=== PATIENT | female | born 1950 | race Caucasian/White ===

== ENCOUNTER 2016-10-06 17:25 | Emergency (ER) | payer BC ==
[~2016-10-06] VITALS: Ht 160 cm; Wt 142.0 kg
[~2016-10-06 17:25] MED LIST changes: -ALBU6.7H INH; -ASPI-557 PO; -CALC-191 PO; -CEPH500C2 PO; -CETI-115 PO; -FLUT16SP EA NOSTRIL; -HYDR-4246 PO; -HYDR25TA PO; -LOSA50TA52 PO; -MAGN250T PO; -SULF1TAB42 PO
[2016-10-06 17:28] VITALS: Ht 160 cm; Wt 142.0 kg
--- OUTSIDE RECORDS SUMMARY | 2016-10-06 17:29 | XMS REPORT ---
Author Author Ki Evans Organization e[employer] Address Unknown Phone Unavailable Care Team Providers Care Buildings And Grounds Supervisor Name Role Phone Ki Evans CP Unavailable Allergies No Known Allergies Problems Problem Type Condition ICD-9 Code Onset Dates Condition Status Problem Morbid obesity 278.01 Active Problem Generalized anxiety disorder 300.02 Active Problem Hypertension, benign 401.1 Active Problem Allergic rhinitis 477.9 Active Problem Carpal tunnel syndrome 354.0 Active Problem Prediabetes 790.29 Active Problem Old laceration or scarring of vulva 624.4 Active Problem Hypercholesterolemia 272.2 Active Problem Major depressive disorder, recurrent episode, mild 296.31 Active Problem Nonspecific abnormal results of kidney function study 794.4 Active Medications Medication Code System Code Instructions Start Date End Date Status Dosage Losartan Potassium [facility] [address]-59 50 MG Orally Once a day Jan 17, 2014 1 tablet Results No Known Results Summary Purpose eClinicalWorks Submission
--- OUTSIDE RECORDS SUMMARY | 2016-10-06 17:29 | XMS REPORT ---
Author Author Breanne Botello Organization [employer] Address Unknown Phone Unavailable Care Team Providers Care Artificial Plastic Eye Maker Name Role Phone Breanne Botello CP Unavailable Allergies No Known Allergies Problems Problem Type Condition Code Onset Dates Condition Status Problem Morbid [...] Date End Date Status Dosage Losartan Potassium [facility] [address]-82 50 MG Orally Once a day Jan 17, 2014 1 tablet Hydrochlorothiazide [facility] [address]-52 25 MG Orally Once a day December 13, 2013 1 tablet Results No Known Results Summary Purpose eClinicalWorks Submission
--- OUTSIDE RECORDS SUMMARY | 2016-10-06 17:29 | XMS REPORT ---
Author Author Breanne Botello [facility] eClinical[employer] Address Unknown Phone Unavailable Care Team Providers Care Mud Grinder Name Role Phone Breanne Botello Unavailable Allergies, Adverse Reactions, Alerts Substance Reaction Event Type Naproxen anaphylaxis Drug Allergy Lisinopril elevated creatinine Drug Allergy Augmentin rash Drug Allergy Amoxicillin hives Drug Allergy gluten rash Non Drug Allergy Problems Problem Type Condition Code Onset Dates Condition Status Problem Morbid obesity 278.01 Active Problem Generalized anxiety disorder 300.02 Active Problem Hypertension, benign 401.1 Active Assessment Acute maxillary sinusitis, unspecified J01.00 Active Assessment Acute bronchitis, unspecified J20.9 Active Problem Allergic rhinitis 477.9 Active Problem Carpal tunnel syndrome 354.0 Active Problem Prediabetes 790.29 Active Problem Old laceration or scarring of vulva 624.4 Active Problem Hypercholesterolemia 272.2 Active Problem Major depressive disorder, recurrent episode, mild 296.31 Active Problem Nonspecific abnormal results of kidney function study 794.4 Active Medications Medication Code System Code Instructions Start Date End Date Status Dosage Marti Maravilla [facility] [address]-92 100 MG Orally Three times a day AugustSeptember 14, 2015 1 capsule as needed Losartan Potassium [facility] [address]-04 50 MG Orally Once a day *needs appt before next refill* Jan 17, 2014 1 tablet Flonase [facility] [address]-93 50 MCG/ACT Nasally Once a day September 04, 2015 1 spray in each nostril ProAir HFA [facility] [address]-74 108 (90 Base) MCG/ACT Inhalation every 4 hrs September 04, 2015 2 puffs as needed Azithromycin [facility] [address]-18 250 MG Orally Once a day September 04, 2015 September 09, 2015 2 tablets on the first day, then 1 tablet daily for 4 days Mobic [facility] [address]-67 7.5 MG Orally Once a day May 03, 2015 October 02, 2015 1 tablet Hydrochlorothiazide [facility] [address]-32 25 MG Orally Once a day December 13, 2013 1 tablet Procedures Procedure Coding System Code Date OFFICE VISIT, EST-LOW COMPLEXITY (15 MIN.) CPT-4 55113 September 04, 2015 Vital Signs Date/Time: September 04, 2015 Temperature 97.7 F Height 62 in Weight 250.8 lbs Blood Pressure Diastolic 73 mm Hg Blood Pressure Systolic 121 mm Hg Cardiac Monitoring Heart Rate 63 /min BMI 45.87 Index Respiratory Rate 16 /min Results No Known Results Summary Purpose eClinicalWorks Submission
--- OUTSIDE RECORDS SUMMARY | 2016-10-06 17:29 | XMS REPORT ---
Author Author Breanne Btoello Organization [employer] Address Unknown Phone Unavailable Care Team Providers Care Staff Consultant Name Role Phone Breanne Botello CP Unavailable [...] Instructions Start Date End Date Status Dosage [facility] [address]-57 7.5 MG Orally Once a day May 03, 2015 October 02, 2015 1 tablet Results No Known Results Summary Purpose eClinicalWorks Submission
--- OUTSIDE RECORDS SUMMARY | 2016-10-06 17:29 | XMS REPORT ---
Author Author Breanne Botello Organization [employer] Address Unknown Phone Unavailable Care Team Providers Care Teaching Music Lessons Name Role Phone Breanne Botello CP Unavailable Allergies, Adverse Reactions, Alerts Substance Reaction [...] results of kidney function study 794.4 Active Assessment Pain in right knee M25.561 Active Assessment Essential (primary) hypertension I10 Active Assessment Other abnormal glucose R73.09 Active Medications Medication Code System Code Instructions Start Date End Date Status Dosage Hydrochlorothiazide [facility] [address]-36 25 MG Orally Once a day December 13, 2013 1 tablet Mobic [facility] [address]-95 7.5 MG Orally Once a day May 03, 2015 Jun 02, 2015 1 tablet Losartan Potassium [facility] [address]-05 50 MG Orally Once a day Jan 17, 2014 1 tablet Procedures Procedure Coding System Code Date OFFICE VISIT, EST-LOW COMPLEXITY (15 MIN.) CPT-4 69545 May 03, 2015 HEMOGLOBIN A1C, IN HOUSE CPT-4 73718 May 03, 2015 Vital Signs Date/Time: May 03, 2015 Height 62 in Weight 244.8 lbs Temperature 97.7 F Blood Pressure Diastolic 77 mm Hg Blood Pressure Systolic 152 mm Hg Cardiac Monitoring Heart Rate 63 /min BMI 44.77 Index Respiratory Rate 16 /min Results Name Result Date Reference Range Unit Abnormality Flag In House HB A1c ----Hemoglobin A1c 5.7 [id number] Summary Purpose eClinicalWorks Submission
--- OUTSIDE RECORDS SUMMARY | 2016-10-06 17:29 | XMS REPORT ---
Author Author Inessa Daniels [facility] eClinicalWorks Address Unknown Phone Unavailable Care Team Providers Care Stadium Manager Name Role Phone Inessa Daniels CP Unavailable Allergies, Adverse Reactions, Alerts Substance Reaction Event Type Naproxen anaphylaxis Drug Allergy Lisinopril elevated creatinine Drug Allergy Augmentin rash Drug Allergy Amoxicillin hives Drug Allergy gluten rash Non Drug Allergy Problems Problem Type Condition Code Onset Dates Condition Status Problem Morbid obesity 278.01 Active Problem Generalized anxiety disorder 300.02 Active Problem Hypertension, benign 401.1 Active Assessment Dysuria 788.1 Active Assessment Routine gynecological examination V72.31 Active Problem Allergic rhinitis 477.9 Active Problem Carpal tunnel syndrome 354.0 Active Problem Prediabetes 790.29 Active Problem Old laceration or scarring of vulva 624.4 Active Problem Hypercholesterolemia 272.2 Active Problem Major depressive disorder, recurrent episode, mild 296.31 Active Problem Nonspecific abnormal results of kidney function study 794.4 Active Medications Medication Code System Code Instructions Start Date End Date Status Dosage Losartan Potassium [facility] [address]-46 50 MG Orally Once a day Jan 17, 2014 1 tablet Metformin HCl [facility] [address]-78 500 MG Orally One tablet in the morning for 7 days, then Twice a day July 25, 2014 1 tablet with meals Hydrochlorothiazide [facility] [address]-33 25 MG Orally Once a day December 13, 2013 1 tablet Venlafaxine HCl ER [facility] [address]-40 37.5 MG Orally Once a day with food Jun 27, 2014 3 caps [id number], then 2 caps [id number], then1 cap QDX 2wks, then stop Glucosamine [facility] [address]-34 500 MG Orally Once a day 1 capsule with a meal Prilosec [facility] [address]-48 20 MG Orally Once a day prn Jan 17, 2014 1 capsule Procedures Procedure Coding System Code Date SPECIMEN HANDLING FEE CPT-4 03594 August 24, 2014 Preventive Care Est Pt. Age 40-64 CPT-4 90904 August 24, 2014 URINALYSIS, IN HOUSE CPT-4 94105 August 24, 2014 Vital Signs Date/Time: August 24, 2014 Height 62 in Weight 261.12 lbs Temperature 97.8 F Blood Pressure Diastolic 68 mm Hg Blood Pressure Systolic 132 mm Hg Cardiac Monitoring Heart Rate 62 /min BMI 47.75 Index Respiratory Rate 16 /min Results No Known Results Summary Purpose eClinicalWorks Submission
--- OUTSIDE RECORDS SUMMARY | 2016-10-06 17:29 | XMS REPORT ---
Author Author Breanne Botello Organization [employer] Address Unknown Phone Unavailable Care Team Providers Care Clinical Fellow Name Role Phone Breanne Botello CP Unavailable Allergies No Known Allergies Problems Problem Type Condition Code Onset Dates Condition Status Problem Morbid obesity 278.01 Active Problem Generalized anxiety disorder 300.02 Active Problem Benign essential hypertension I10 Active Problem Allergic rhinitis 477.9 Active Problem Carpal tunnel syndrome 354.0 Active Problem Prediabetes 790.29 Active Problem Old laceration or scarring of vulva 624.4 Active Problem Hypercholesterolemia 272.2 Active Problem Major depressive disorder, recurrent episode, mild F33.0 Active Problem Nonspecific abnormal results of kidney function study 794.4 Active Medications No Known Medications Results No Known Results Summary Purpose eClinicalWorks Submission
--- OUTSIDE RECORDS SUMMARY | 2016-10-06 17:29 | XMS REPORT ---
Author Author Inessa Daniels Organization [employer] Address Unknown Phone Unavailable Care Team Providers Care Aml Analyst Name Role Phone Inessa Daniels CP Unavailable Allergies No Known Allergies Problems Problem Type Condition ICD-9 Code Onset Dates Condition Status Problem Hypertension, benign 401.1 Active Problem Morbid obesity 278.01 Active Problem Carpal tunnel syndrome 354.0 Active Problem Major depressive disorder, recurrent episode, mild 296.31 Active Problem Allergic rhinitis 477.9 Active Problem Hypercholesterolemia 272.2 Active Problem Generalized anxiety disorder 300.02 Active Problem Nonspecific abnormal results of kidney function study 794.4 Active Problem Old laceration or scarring of vulva 624.4 Active Medications Medication Code System Code Instructions Start Date End Date Status Dosage Venlafaxine HCl ER [facility] [address]-05 37.5 MG Orally Once a day with food Jun 27, 2014 3 caps [id number], then 2 caps [id number], then1 cap QDX 2wks, then stop Results No Known Results Summary Purpose eClinicalWorks Submission
--- OUTSIDE RECORDS SUMMARY | 2016-10-06 17:29 | XMS REPORT ---
Author Author Ki Evans Organization [employer] Address Unknown Phone Unavailable Care Team Providers Care Shaper Set Up Operator Name Role Phone Ki Evans CP Unavailable [...] or scarring of vulva 624.4 Active Medications No Known Medications Vital Signs Date/Time: Feb 23, 2014 Height 62 inches Weight 249 lbs Temperature 97.8 F Blood Pressure Diastolic 68 mm Hg Blood Pressure Systolic 108 mm Hg Cardiac Monitoring Heart Rate 80 Beats per Minute BMI 45.54 Index Respiratory Rate 16 per Minute Results No Known Results Summary Purpose eClinicalWorks Submission
--- OUTSIDE RECORDS SUMMARY | 2016-10-06 17:29 | XMS REPORT ---
Author Author Ki Evans Organization [employer] Address Unknown Phone Unavailable Care Team Providers Care Hand Buffing Wheel Former Name Role Phone Ki Evans CP Unavailable [...] Instructions Start Date End Date Status Dosage Metformin HCl [facility] [address]-97 500 MG Orally One tablet in the morning for 7 days, then Twice a day July 25, 2014 1 tablet with meals Results No Known Results Summary Purpose eClinicalWorks Submission
--- OUTSIDE RECORDS SUMMARY | 2016-10-06 17:29 | XMS REPORT ---
Author Author Syeda Anton Organization [employer] Address Unknown Phone Unavailable Care Team Providers Care Senior Major Gifts Officer Name Role Phone Syeda Anton CP Unavailable Allergies No Known Allergies Problems [...] vulva 624.4 Active Medications No Known Medications Results No Known Results Summary Purpose eClinicalWorks Submission
--- OUTSIDE RECORDS SUMMARY | 2016-10-06 17:30 | XMS REPORT ---
Author Author Syeda Anton Organization [employer] Address Unknown Phone Unavailable Care Team Providers Care Range Scientist Name Role Phone Syeda Anton CP Unavailable Allergies, Adverse Reactions, Alerts Substance Reaction Event Type Naproxen anaphylaxis Drug Allergy Lisinopril elevated creatinine Drug Allergy Augmentin rash Drug Allergy gluten rash Non Drug Allergy Problems Problem Type Condition ICD-9 Code Onset Dates Condition Status Assessment Hypertension, benign 401.1 Active Problem Hypertension, benign 401.1 Active Problem Morbid obesity 278.01 Active Problem Carpal tunnel syndrome 354.0 Active Problem Major depressive disorder, recurrent episode, mild 296.31 Active Problem Allergic rhinitis 477.9 Active Problem Hypercholesterolemia 272.2 Active Problem Generalized anxiety disorder 300.02 Active Problem Nonspecific abnormal results of kidney function study 794.4 Active Problem Old laceration or scarring of vulva 624.4 Active Assessment Allergic rhinitis 477.9 Active Assessment Hypercholesterolemia 272.2 Active Assessment Generalized anxiety disorder 300.02 Active Medications Medication Code System Code Instructions Start Date End Date Status Dosage Hydrochlorothiazide [facility] [address]-37 25 MG Orally Once a day December 13, 2013 Active 1 tablet Losartan Potassium [facility] [address]-19 50 MG Orally Once a day Jan 17, 2014 Active 1 tablet Venlafaxine HCl ER [facility] [address]-25 150 MG Orally Once a day Active 1 capsule with food Prilosec [facility] [address]-68 20 MG Orally Once a day Jan 17, 2014 Active 1 capsule Procedures Procedure Coding System Code Date OFFICE VISIT, EST-LOW COMPLEXITY (15 MIN.) CPT-4 41639 Feb 23, 2014 Vital Signs Date/Time: Feb 23, 2014 Height 62 inches Weight 249 lbs Temperature 97.8 F Blood Pressure Diastolic 68 mm Hg Blood Pressure Systolic 108 mm Hg Cardiac Monitoring Heart Rate 80 Beats per Minute BMI 45.54 Index Respiratory Rate 16 per Minute Results No Known Results Immunizations Vaccine Administration Date Refused Influenza Feb 23, 2014 Refused TDap Feb 23, 2014 Summary Purpose eClinicalWorks Submission
--- OUTSIDE RECORDS SUMMARY | 2016-10-06 17:30 | XMS REPORT ---
Author Author Syeda Anton Organization [employer] Address Unknown Phone Unavailable Care Team Providers Care Nurse Outreach Case Manager Name Role Phone Syeda Anton CP Unavailable [...] End Date Status Dosage Venlafaxine HCl ER [facility] [address]-12 150 MG Orally Once a day Active 1 capsule with food Losartan Potassium [facility] [address]-23 50 MG Orally Once a day Jan 17, 2014 Active 1 tablet Hydrochlorothiazide [facility] [address]-58 25 MG Orally Once a day December 13, 2013 Active 1 tablet Vital Signs Date/Time: Feb 23, 2014 Height 62 inches Weight 249 lbs Temperature 97.8 F Blood Pressure Diastolic 68 mm Hg Blood Pressure Systolic 108 mm Hg Cardiac Monitoring Heart Rate 80 Beats per Minute BMI 45.54 Index Respiratory Rate 16 per Minute Results No Known Results Summary Purpose eClinicalWorks Submission
--- OUTSIDE RECORDS SUMMARY | 2016-10-06 17:30 | XMS REPORT ---
Author Author Breanne Botello [facility] eClinicalWorks Address Unknown Phone Unavailable Care Team Providers Care Patient Support Associate Name Role Phone Breanne Botello Unavailable Allergies, [...] rhinitis 477.9 Active Problem Carpal tunnel syndrome G56.00 Active Problem Prediabetes 790.29 Active Problem Old laceration or scarring of vulva 624.4 Active Problem Hypercholesterolemia 272.2 Active Problem Major depressive disorder, recurrent episode, mild F33.0 Active Problem Nonspecific abnormal results of kidney function study 794.4 Active Assessment Carpal tunnel syndrome, right upper limb G56.01 Active Assessment Fatigue, unspecified type R53.83 Active Assessment Benign essential hypertension I10 Active Assessment Major depressive disorder, recurrent episode, mild F33.0 Active Medications Medication Code System Code Instructions Start Date End Date Status Dosage Flonase [facility] [address]-16 50 MCG/ACT Nasally Once a day September 04, 2015 1 spray in each nostril Losartan Potassium [facility] [address]-61 50 MG Orally Once a day *needs appt before next refill* Jan 17, 2014 1 tablet Mobic [facility] 45836[address]4445 7.5 Orally Once a day August 21, 2016 1 tablet Wellbutrin XL [facility] [address]-74 150 MG Orally Once a day Jan 24, 2016 1 tablet in the morning ProAir HFA [facility] [address]-25 108 (90 Base) MCG/ACT Inhalation every 4 hrs September 04, 2015 2 puffs as needed Hydrochlorothiazide [facility] [address]-91 25 MG Orally Once a day December 13, 2013 1 tablet Procedures Procedure Coding System Code Date HEMOGLOBIN A1C, IN HOUSE CPT-4 00905 Jan 24, 2016 VITAMIN D 25 HYDROXY CPT-4 02926 Jan 24, 2016 -ELECTROCARDIOGRAM, COMPLETE CPT-4 67009 Jan 24, 2016 OFFICE VISIT, EST-LOW COMPLEXITY (15 MIN.) CPT-4 19777 Jan 24, 2016 TSH CPT-4 33212 Jan 24, 2016 VITAMIN B12 CPT-4 24650 Jan 24, 2016 FOLATE- VIT B12 AND FOLATE CPT-4 15196 Jan 24, 2016 COMPREHENSIVE METABOLIC PANEL CPT-4 19812 Jan 24, 2016 COMPLETE CBC W/AUTO DIFF WBC CPT-4 91549 Jan 24, 2016 Vital Signs Date/Time: Jan 24, 2016 Temperature 97.9 F Height 62 in Weight 257.12 lbs Blood Pressure Diastolic 72 mm Hg Blood Pressure Systolic 162 mm Hg Cardiac Monitoring Heart Rate 61 /min BMI 47.02 Index Oximetry 98 % Results Name Result Date Reference Range Unit Abnormality Flag CBC With Platelet and Differential ----Immature Granulocytes 0.3 55073654 0.0-1.0 % ----Platelet Count 242 [id number] 150-400 K/uL ----Monocytes 8 10511167 4-11 % ----HGB 15.3 59828769 12.0-16.0 g/dL ----Lymphocytes 32 96763271 20-46 % ----HCT 43.8 94661439 37.0-47.0 % ----Neutrophils 57 44722784 51-75 % ----MCV 84.1 67065715 82.0-99.0 fL ----Absolute Basophils 0.04 10671515 0.00-0.20 10*3 ----MCH 29.4 01421064 27.0-32.0 pg ----Absolute Eosinophils 0.30 68999298 0.00-0.50 10*3 ----MCHC 34.9 33548502 32.0-36.0 g/dL ----Eosinophils 3 60310842 0-4 % ----Absolute Monocytes 0.68 37210584 0.30-1.00 10*3 ----RDW 13.7 02439454 11.5-14.5 % ----Basophils 0 23913936 0-2 % ----WBC 8.9 78526112 4.8-10.8 K/uL ----MPV 10.9 67206089 8.8-14.8 fL ----Absolute Lymphocytes 2.83 53241974 0.80-3.30 10*3 ----Differential Scanned Slide [id number] ----RBC 5.21 04666169 4.00-5.20 10*6/uL H ----Absolute Neutrophils 5.01 18694914 1.90-7.00 10*3 Comprehensive Metabolic Panel (CMP) ----AST (SGOT) 16 23981491 5-34 U/L ----Sodium 140 81928879 135-144 mEq/L ----Calcium 9.6 64226446 8.9-10.5 mg/dL ----ALT (SGPT) 13 20160124 0-55 U/L ----Chloride 104 56501659 99-111 mEq/L ----Protein 7.0 58022393 6.0-7.6 g/dL ----Potassium 5.3 76577652 3.5-5.2 mEq/L H ----Alkaline Phosphatase 60 59902121 40-150 U/L ----Glucose 108 62963187 70-99 mg/dL H ----Globulin 2.6 36916421 1.8-4.0 g/dL ----Creatinine 1.10 18987653 0.57-1.11 mg/dL ----Anion Gap 9 35011437 3-20 ----BUN 21 18236885 10-20 mg/dL H ----Bilirubin Total 0.6 87279973 0.2-1.2 mg/dL ----CO2 27 14603413 22-31 mEq/L ----Albumin 4.4 15405063 3.4-4.8 g/dL In House HB A1c ----Hemoglobin A1c 6.0 20160124 Vitamin B12 and Folate ----Folate 6.6 13534674 7.0-31.4 ng/mL L ----Vitamin B12 548 71160462 213-816 pg/mL Vitamin D, 25-Hydroxy ----25-Hydroxy D Total 31 44352183 30-74 ng/mL ----25-Hydroxy D3 31 98918850 ng/mL ----25-Hydroxy D2 <7 61896346 ng/mL TSH ----TSH 0.69 85071935 0.35-4.94 uIU/mL eGFR ----eGFR 50 82901891 >60 mL/min * Summary Purpose eClinicalWorks Submission
--- OUTSIDE RECORDS SUMMARY | 2016-10-06 17:30 | XMS REPORT ---
Author Author Breanne Botello Organization eClinicalWorks Address Unknown Phone Unavailable Care Team Providers Care Director Machine Name Role Phone Breanne Botello CP Unavailable [...]
--- OUTSIDE RECORDS SUMMARY | 2016-10-06 17:30 | XMS REPORT ---
Author Author Syeda Anton Organization [employer] Address Unknown Phone Unavailable Care Team Providers Care Psychology Clinician Name Role Phone Syeda Anton Unavailable Allergies No Known Allergies Problems Problem [...] End Date Status Dosage Losartan Potassium [facility] [address]-62 50 MG Orally Once a day Jan 17, 2014 Active 1 tablet Vital Signs Date/Time: Feb 23, 2014 Height 62 inches Weight 249 lbs Temperature 97.8 F Blood Pressure Diastolic 68 mm Hg Blood Pressure Systolic 108 mm Hg Cardiac Monitoring Heart Rate 80 Beats per Minute BMI 45.54 Index Respiratory Rate 16 per Minute Results No Known Results Summary Purpose eClinicalWorks Submission
--- OUTSIDE RECORDS SUMMARY | 2016-10-06 17:30 | XMS REPORT ---
Author Author Inessa Daniels [facility] eClinicalWorks Address Unknown Phone Unavailable Care Team Providers Care Communications Electrician Supervisor Name Role Phone Inessa Daniels CP Unavailable [...] of kidney function study 794.4 Active Assessment Prediabetes 790.29 Active Assessment Hypercholesterolemia 272.2 Active Assessment Hypertension, benign 401.1 Active Assessment Allergic rhinitis 477.9 Active Assessment Generalized anxiety disorder 300.02 Active Assessment Major depressive disorder, recurrent episode, mild 296.31 Active Assessment Morbid obesity 278.01 Active Assessment Other abnormal glucose 790.29 Active Medications Medication Code System Code Instructions Start Date End Date Status Dosage Losartan Potassium [facility] [address]-49 50 MG Orally Once a day Jan 17, 2014 1 tablet Hydrochlorothiazide [facility] [address]-10 25 MG Orally Once a day December 13, 2013 1 tablet Glucosamine [facility] [address]-91 500 MG Orally Once a day 1 capsule with a meal Venlafaxine HCl ER [facility] [address]-74 37.5 MG Orally Once a day with food Jun 27, 2014 3 caps [id number], then 2 caps [id number], then1 cap QDX 2wks, then stop Prilosec [facility] [address]-74 20 MG Orally Once a day prn Jan 17, 2014 1 capsule Procedures Procedure Coding System Code Date OFFICE VISIT, EST-LOW COMPLEXITY (15 MIN.) CPT-4 83302 Jul 11, 2014 Vital Signs Date/Time: Jul 11, 2014 Height 62 in Weight 257 lbs Temperature 98.1 F Blood Pressure Diastolic 74 mm Hg Blood Pressure Systolic 128 mm Hg Cardiac Monitoring Heart Rate 84 /min BMI 47.00 Index Respiratory Rate 18 /min Results No Known Results Summary Purpose eClinicalWorks Submission
--- OUTSIDE RECORDS SUMMARY | 2016-10-06 17:30 | XMS REPORT ---
Author Author Ki Evans Organization [employer] Address Unknown Phone Unavailable Care Team Providers Care Meat And Seafood Manager Name Role Phone Ki Evans CP Unavailable Allergies No Known Allergies Problems Problem Type Condition ICD-9 Code Onset Dates Condition Status Assessment Hypertension, benign 401.1 Active Problem Hypertension, benign 401.1 Active Problem Morbid obesity 278.01 Active Assessment Hypercholesterolemia 272.2 Active Problem Carpal tunnel syndrome 354.0 Active [...] End Date Status Dosage Venlafaxine HCl ER [facility] [address]-06 150 MG Orally Once a day 1 capsule with food Hydrochlorothiazide [facility] [address]-33 25 MG Orally Once a day December 13, 2013 1 tablet Losartan Potassium [facility] [address]-39 50 MG Orally Once a day Jan 17, 2014 1 tablet Prilosec [facility] [address]-57 20 MG Orally Once a day Jan 17, 2014 1 capsule Procedures Procedure Coding System Code Date LIPID PANEL CPT-4 70060 Jun 22, 2014 COMPREHENSIVE METABOLIC PANEL CPT-4 46966 Jun 22, 2014 Vital Signs Date/Time: Feb 23, 2014 Height 62 inches Weight 249 lbs Temperature 97.8 F Blood Pressure Diastolic 68 mm Hg Blood Pressure Systolic 108 mm Hg Cardiac Monitoring Heart Rate 80 Beats per Minute BMI 45.54 Index Respiratory Rate 16 per Minute Results No Known Results Summary Purpose [employer] Submission
--- OUTSIDE RECORDS SUMMARY | 2016-10-06 17:30 | XMS REPORT ---
Author Author Inessa Daniels Organization [employer] Address Unknown Phone Unavailable Care Team Providers Care Office Assistant Name Role Phone Inessa Daniels CP Unavailable [...]
--- OUTSIDE RECORDS SUMMARY | 2016-10-06 17:30 | XMS REPORT ---
Author Author Breanne Botello [facility] [employer] Address Unknown Phone Unavailable Care Team Providers Care Sane Rn Name Role Phone Breanne Botello Unavailable Allergies, Adverse Reactions, Alerts Substance Reaction Event Type Naproxen anaphylaxis Drug Allergy Lisinopril elevated creatinine Drug Allergy Augmentin rash Drug Allergy Amoxicillin hives Drug Allergy gluten rash Non Drug Allergy Problems Problem Type Condition Code Onset Dates Condition Status Problem Morbid obesity 278.01 Active Problem Generalized anxiety disorder 300.02 Active Problem Benign essential hypertension I10 Active Assessment Carpal tunnel syndrome G56.00 Active Assessment Major depressive disorder, recurrent episode, mild F33.0 Active Problem Allergic rhinitis 477.9 Active Problem Carpal tunnel syndrome G56.00 Active Problem Prediabetes 790.29 Active Problem Old laceration or scarring of vulva 624.4 Active Problem Hypercholesterolemia 272.2 Active Problem Major depressive disorder, recurrent episode, mild F33.0 Active Problem Nonspecific abnormal results of kidney function study 794.4 Active Medications Medication Code System Code Instructions Start Date End Date Status Dosage Wellbutrin XL [facility] [address]-95 150 MG Orally Once a day Jan 24, 2016 1 tablet in the morning Mobic [facility] 12231554605 7.5 Orally Once a day September 18, 2016 1 tablet Cholecalciferol [facility] [address]-90 03035 UNIT Orally once per week Feb 18, 2016 Apr 18, 2016 as directed Hydrochlorothiazide [facility] [address]-02 25 MG Orally Once a day December 13, 2013 1 tablet ProAir HFA [facility] [address]-03 108 (90 Base) MCG/ACT Inhalation every 4 hrs September 04, 2015 2 puffs as needed Flonase [facility] [address]-13 50 MCG/ACT Nasally Once a day September 04, 2015 1 spray in each nostril Losartan Potassium [facility] [address]-46 50 MG Orally Once a day *needs appt before next refill* Jan 17, 2014 1 tablet Procedures Procedure Coding System Code Date OFFICE VISIT, EST-LOW COMPLEXITY (15 MIN.) CPT-4 28347 Feb 21, 2016 Vital Signs Date/Time: Feb 21, 2016 Temperature 97.7 F Height 62 in Weight 253 lbs Blood Pressure Diastolic 86 mm Hg Blood Pressure Systolic 118 mm Hg Cardiac Monitoring Heart Rate 68 /min BMI 46.27 Index Oximetry 97 % Respiratory Rate 16 /min Results No Known Results Summary Purpose [employer] Submission
--- OUTSIDE RECORDS SUMMARY | 2016-10-06 17:30 | XMS REPORT ---
Author Author Breanne Botello Organization [employer] Address Unknown Phone Unavailable Care Team Providers Care Coding Clerks Supervisor Name Role Phone Breanne Botello CP Unavailable [...] Instructions Start Date End Date Status Dosage Cholecalciferol [facility] [address]-06 72560 UNIT Orally once per week Feb 18, 2016 Apr 18, 2016 as directed Results No Known Results Summary Purpose [employer] Submission
--- NOTE | 2016-10-06 17:45 | NUR ---
REPORT TO FERMIN IQBAL
--- NOTE | 2016-10-06 17:49 | ERPDOC ---
Departure Disposition Decision Date: October 06, 2016 Disposition Decision Time: 20:15 Disposition: 01 DISCHARGED HOME, SELF-CARE Impression Impression Impression: Primary Impression: Cellulitis Severity: Moderate Condition: Stable Seen By: Physician only Referrals: MARICEL MAK DO (Family) Patient Instructions: Cellulitis (ED) Problems/Meds/Labs Reviewed?: Yes Medications reviewed and manag: Yes Additional Instructions: Keflex 500 mg, 2 tabs twice daily. Bactrim DS, one tablet twice daily. [place] 5 mg tab, 1 tab every 6 hours as needed for pain. Keep ice on thumb, keep them elevated. Follow up with primary care provider. Follow up care ordered?: Yes Mental Status: Alert, Oriented Scripts Hydrocodone/Acetaminophen ([place] 5-325 Tablet) 5-325 Tablet 1 TAB PO QID Y for PAIN, #15 TAB Prov: BIANKA MATA MD 10/06/16 HPI General Chief Complaint: Upper Extremity Pain Stated Complaint: INFECTION IN THUMB Time Seen by Provider: 17:44 HPI Hand/Forearm Initial Comments 65-year-old female with right thumb infection. She was seen at outpatient clinic today and sent over for an x-ray. When she got here she was concerned that the thumb was swelling and hurting her and asked to be seen in the ED. She had been given a gram of Rocephin IM at the office and after the ER visit was concluded, we found that she had been written Keflex and Bactrim as well Allergies: Coded Allergies: amoxicillin trihydrate (Verified Allergy, Unknown, RASH, 10/06/16) gluten (Verified Allergy, Unknown, 'BREAK OUT', 10/06/16) potassium clavulanate (Verified Allergy, Unknown, RASH, 10/06/16) Past History Vaccines Hx Influenza Vaccination: No Hx Pneumococcal Vaccination: No Exam General Vital Signs: Temperature: 98.6, Source: Oral, Heart Rate: 97, Respiratory Rate : 20, BP: 147/71, Pulse Oximetry: 97 Height (Feet): 5 Height (Inches): 3.00 Neurologic RN Documented GCS Eye Opening: Verbal: Motor: Total: Progress Results/Orders Orders Procedure Category Date Status Time Cbc W/Auto LAB 10/06/16 Complete Diff-Reflex Manual 17:49 Cmp - Comprehensive LAB 10/06/16 Complete Metabolic 17:49 Ibuprofen (Motrin) PHA 5/22/17 Complete 18:00 C-Reactive Protein - LAB 10/06/16 Complete CRP 17:49 Hydrocodone/Acetaminophen PHA 10/06/16 Complete ([place] 5/325) 18:00 Hydrocodone/Acetaminophen PHA 10/06/16 Complete ([place] 5/325) 19:45 Lab Results Laboratory Tests Test 10/06/16 18:08 White Blood Count 11.5T/MM3 Red Blood Count 5.16M/MM3 Hemoglobin 14.8GM/DL Hematocrit 43.0% Mean Corpuscular Volume 83.3UM3 Mean Corpuscular Hemoglobin 28.7UUG Mean Corpuscular Hemoglobin Concent 34.4GM/DL RDW Standard Deviation 41.9FL Platelet Count 239T/MM3 Mean Platelet Volume 10.3UM3 Immature Granulocyte % (Auto) % Neutrophils (%) (Auto) % Lymphocytes (%) (Auto) % Monocytes (%) (Auto) % Eosinophils (%) (Auto) % Basophils (%) (Auto) % Absolute Immature Granulocyte (auto T/MM3 Absolute Neutrophils (auto) T/MM3 Absolute Lymphocytes (auto) T/MM3 Absolute Monocytes (auto) T/MM3 Absolute Eosinophils (auto) T/MM3 Absolute Basophils (auto) T/MM3 Neutrophils % (Manual) 82.0% Band Neutrophils % 5.0% Lymphocytes % (Manual) 9.0% Monocytes % (Manual) 4.0% Absolute Neutrophils (Manual) 9.4T/MM3 Band Neutrophils # 0.6T/MM3 Lymphocytes # (Manual) 1.0T/MM3 Monocytes # (Manual) 0.5T/MM3 Red Cell Morphology Comment Normal Turbidity < 20 Sodium Level 143MEQ/L Potassium Level 3.5MEQ/L Chloride Level 102MEQ/L Carbon Dioxide Level 26MEQ/L Anion Gap 15MEQ/L Blood Urea Nitrogen 25.0MG/DL Creatinine 1.1MG/DL Glomerular Filtration Rate Calc 50 BUN/Creatinine Ratio 23RATIO Glucose Level 149MG/DL Calculated Osmolality 282MOSM/KG Calcium Level 9.8MG/DL Total Bilirubin 0.90MG/DL Icterus Index < 2 Aspartate Amino Transf (AST/SGOT) 21U/L Alanine Aminotransferase (ALT/SGPT) 40U/L Alkaline Phosphatase 59U/L C-Reactive Protein 25.5MG/L Total Protein 7.6G/DL Albumin 4.7G/DL Globulin 2.9G/DL Albumin/Globulin Ratio 1.6RATIO Chemistry Specimen Hemolysis < 15 Medications Current ED Medications Ibuprofen (Motrin) 600 mg O ONCE PO Last administered on 10/06/16 18:13; Start 10/06/16 at 18:00; Stop 10/06/16 at 18:01; Status DC Acetaminophen/ Hydrocodone Bitart ([place] 5/325) 1 tab O ONCE PO Last administered on 10/06/16 18:13; Start 10/06/16 at 18:00; Stop 10/06/16 at 18:01 ; Status DC Acetaminophen/ Hydrocodone Bitart ([place] 5/325) 1 tab O ONCE PO Last administered on 10/06/16 20:06; Start 10/06/16 at 19:45; Stop 10/06/16 at 19:46 ; Status DC Progress Progress Continue with Bactrim and Keflex. Ice to the thumb. Keep them elevated. I don't know that this will need draining, most likely will respond to the antibiotics. She was written a prescription for [place] 5 mg and given 2 tablets will she was in the ED. BIANKA MATA MD October 06, 2016 17:49
[2016-10-06] MEDS ORDERED: IBUPROFEN 600 MG TABLET PO ONE (18:00)
[2016-10-06] MEDS ORDERED: HYDROCODONE/APAP 5 mg/325 mg TABLET PO ONE ×2 (18:00→19:45)
--- NOTE | 2016-10-06 18:02 | NUR ---
LAB LAB AT BEDSIDE FOR BLOOD DRAW
[2016-10-06] MEDS ORDERED: LOSA50TA52 PO (18:03)
[2016-10-06] MEDS ORDERED: HYDR25TA PO (18:03)
[2016-10-06] MEDS ORDERED: FLUT16SP EA NOSTRIL (18:03)
[2016-10-06] MEDS ORDERED: ALBU6.7H INH (18:05)
[2016-10-06] MEDS ORDERED: CETI-115 PO (18:05)
[2016-10-06] MEDS ORDERED: CALC-191 PO (18:05)
[2016-10-06] MEDS ORDERED: ASPI-557 PO (18:05)
[2016-10-06] MEDS ORDERED: MAGN250T PO (18:05)
[2016-10-06] MEDS ORDERED: SULF1TAB42 PO (18:07)
[2016-10-06] MEDS ORDERED: CEPH500C2 PO (18:07)
[2016-10-06 18:16] LABS: HGB - HEMOGLOBIN 14.8 GM/DL (12-16); MEAN CORPUSCULAR HGB 28.7 UUG (26-34); MEAN CORPUSCULAR HGB CONC(MCHC 34.4 GM/DL (31-37); MEAN CORPUSCULAR VOLUME 83.3 UM3 (80-100); MEAN PLATELET VOLUME 10.3 UM3 (9.4-12.4); RED BLOOD COUNT 5.16 M/MM3 (4.00-5.20); WBC - WHITE BLOOD COUNT 11.5 T/MM3 (4.5-11.0)
[2016-10-06 18:30] LABS: ALBUMIN 4.7 G/DL (3.5-5.0); ALBUMIN/GLOBULIN RATIO 1.6 RATIO (1.1-2.2); ALKALINE PHOSPHATASE 59 U/L (38-126); ALT (SGPT) 40 U/L (9-52); ANION GAP 15 MEQ/L (5-15); AST (SGOT) 21 U/L (14-36); BUN/CREATININE RATIO 23 RATIO (6-26); C-REACTIVE PROTEIN 25.5 MG/L (0-9); CALCIUM 9.8 MG/DL (8.4-10.2); CHLORIDE 102 MEQ/L (98-107); CO2 - CARBON DIOXIDE 26 MEQ/L (22-30); CREATININE 1.1 MG/DL (0.7-1.2); GLOMERULAR FILTRATION RATE 50; GLUCOSE 149 MG/DL (65-110); POTASSIUM 3.5 MEQ/L (3.6-5); SODIUM 143 MEQ/L (134-144); TOTAL PROTEIN 7.6 G/DL (6.3-8.2)
[2016-10-06 18:42] LABS: BAND NEUTROPHILS # 0.6 T/MM3; MONOCYTES # (MANUAL) 0.5 T/MM3 (0-0.8); NEUTROPHILS #(MANUAL)-ABSOLUTE 9.4 T/MM3 (1.8-7.7); TOTAL CELLS COUNTED 100 %
--- NOTE | 2016-10-06 19:19 | NUR ---
UPDATE PATIENT CONTINUES TO REPORT PAIN 10/10 STATES THAT THE PAIN MEDICATION HAS NOTE HELPED AT ALL. PATIENT ALSO STATES SHE IS READY TO GO HOME.
[2016-10-06] MEDS ORDERED: HYDR-4246 PO (20:17)
[2016-10-06 20:25] VITALS: BP 128/70; PULSE 89; RESP 19; TEMP 98.6; O2SAT 92
== END 2016-10-06 20:25 | disposition home or self-care (01) ==
LOC: ED 17:25
DX: L03.011 Cellulitis of right finger (principal)
CPT/HCPCS: 36415; 80053; 85025; 86140

== ENCOUNTER → 2016-10-06 | Outpatient (CLI) | payer BC ==
[~2016-10-06] MED LIST: ALBU6.7H INH; ASPI-557 PO; CALC-191 PO; CEPH500C2 PO; CETI-115 PO; FLUT16SP EA NOSTRIL; HYDR-4246 PO; HYDR25TA PO; LISI-127 PO; LOSA50TA52 PO; MAGN250T PO; SULF1TAB42 PO; [UNRECOGNIZED DRUG - OTHER]
--- NOTE | 2016-10-07 08:44 | DI ---
Indication: ITS.REASON: M79.644 PAIN IN RIGHT THUMB; L03.019 PULP ABSCESS OF THUMB PROCEDURE: FINGERS RIGHT 2 VIEW MIN: Encounter: Initial Comparison: None Findings: There is no acute fracture, dislocation or malalignment identified. Mild degenerative change at the first metacarpophalangeal joint. Severe degenerative change at the first carpometacarpal joint. Impression: No acute osseous abnormality. .
== END ==
LOC: IMA 17:00
PROVIDERS: ATTEND Registered Nurse
DX: M18.11 Unilateral primary osteoarthritis of first carpometacarpal joint, right hand (principal); M19.041 Primary osteoarthritis, right hand; M79.644 Pain in right finger(s)